=== PATIENT | male | born 1980 | race Caucasian/White ===

== ENCOUNTER 2024-10-11 09:08 | Outpatient (CLI) | payer OTHER ==
--- NOTE | 2024-10-11 11:27 | RADIOLOGY REPORT ---
CLINICAL INFORMATION: Left shoulder pain. TECHNIQUE: Multisequence multiplanar MRI images of the left shoulder were obtained without contrast. COMPARISON: None FINDINGS: Acromioclavicular joint: There is mild acromioclavicular hypertrophy and mild edema. There is Type 2 acromion. Small amount of fluid in the subacromial / subdeltoid bursa. Rotator cuff tendons: Moderate tendinosis of the distal supraspinatus and infraspinatus tendons. Ther e is partial-thickness articular surface tear involving the distal supraspinatus tendon measuring saima roximately 1.2 cm in greatest transverse and up to 0.9 cm in proximal to distal dimension, just proxi mal to the insertion, with portions of the tear appearing to involve greater than 50% of the tendon t hickness, although poorly delineated from adjacent magic angle artifact at the distal supraspinatus a nd infraspinatus tendons on the PD fat-sat images and appears slightly less conspicuous on the de la vega l T2 images. Moderate tendinosis of the distal subscapularis tendon without evidence of tear. Teres m inor tendon is intact and otherwise unremarkable. Biceps tendon: [id number] tendinosis of the proximal long head biceps tendon along its intra-ar ticular course. No tear visualized. Labrum: No labral tear identified. Bones: No fracture or focal marrow contusion. Muscles: Normal muscle bulk. No atrophy. Other: No other significant findings. IMPRESSION: 1. Rotator cuff tendinosis with partial-thickness articular surface tear of the distal supraspinatus tendon as described above. 2. Mild acromioclavicular hypertrophy with mild subacromial/ subdeltoid bursitis. 3. Tendinosis of the proximal long head biceps tendon along its intra-articular course. 4. Additional findings as described above.
--- NOTE | 2024-10-11 12:01 | RADIOLOGY REPORT ---
CLINICAL INFORMATION: Right shoulder pain. TECHNIQUE: Multisequence multiplanar MRI images of the right shoulder were obtained without contrast . COMPARISON: None FINDINGS: Acromioclavicular joint: There is moderate acromioclavicular hypertrophy and moderate edema. There is Type 2 acromion. Small amount of fluid in the subacromial / subdeltoid bursa. Rotator cuff tendons: Moderate tendinosis of the distal supraspinatus and infraspinatus tendons. Ther e is intrasubstance signal in the distal infraspinatus tendon just proximal to its insertion measurin g up to 0.7 cm in AP dimension and 0.4 cm in proximal to distal dimension, suspected interstitial tea r, although possibly extending to the articular surface. Teres minor and subscapularis tendons are in tact. Biceps tendon: Prominent intrasubstance signal in the long head biceps tendon along its intra-articul ar course, suspected longitudinal split tear. There is also moderate tendinosis of the proximal long head biceps tendon. Labrum: No labral tear identified. Bones: No fracture or focal marrow contusion. Muscles: Normal muscle bulk. No atrophy. Other: No other significant findings. IMPRESSION: 1. Rotator cuff tendinosis with partial-thickness tear of the distal infraspinatus tendon as describe d above. 2. Moderate acromioclavicular hypertrophy with mild subacromial/subdeltoid bursitis. 3. Tendinosis of the proximal long head biceps tendon with suspected interstitial tear. 4. Additional findings as described above.
== END 2024-10-11 23:59 | disposition home or self-care (01) ==
LOC: MRI02 09:08
PROVIDERS: ATTEND Family Medicine
DX: M75.112 Incomplete rotator cuff tear or rupture of left shoulder, not specified as traumatic (principal); M75.111 Incomplete rotator cuff tear or rupture of right shoulder, not specified as traumatic; M25.511 Pain in right shoulder; M25.512 Pain in left shoulder; M89.311 Hypertrophy of bone, right shoulder; M75.22 Bicipital tendinitis, left shoulder; M89.312 Hypertrophy of bone, left shoulder
CPT/HCPCS: 73221